=== PATIENT | female | born 1990 | race Caucasian/White ===

== ENCOUNTER 2021-05-05 08:27 | Outpatient (CLI) | payer OTHER | END 2021-05-05 08:28 | disposition home or self-care (01) | LOC: CSHLAB 08:27 | PROVIDERS: ATTEND Student in an Organized Health Care Education/Training Program | DX: U07.1 COVID-19 (principal) | CPT/HCPCS: 36415; 80053; 85027; 86780; 86850; 86900; 86901; 87340; U0002 ==

== ENCOUNTER 2021-05-06 10:01 | Inpatient (IN) | payer OTHER ==
[2021-05-05 13:44] LABS: Hemoglobin 12.9 g/dL (12.0-15.5); Mean Corpuscular HGB CONC 33.9 g/dL (32.0-36.0); Mean Corpuscular Volume 91.3 fl (81.6-98.3); Mean Platelet Volume 11.5 fl (7.4-10.4); Platelet Count 228 10x3/uL (150-450); RBC Distribution Width 12.7 % (11.5-14.5); Red Blood Cell (RBC) Count 4.16 10x6/uL (3.90-5.03); White Blood Cell (WBC) Count 7.3 10x3/uL (3.5-10.5)
[2021-05-05 14:01] LABS: ALT (SGPT) 18 U/L (8-55); AST (SGOT) 27 U/L (5-34); Albumin 3.5 g/dL (3.5-5.0); Alkaline Phosphatase 129 U/L (40-110); Anion Gap 14 mmol/L (10-20); BUN (Urea Nitrogen) 5 mg/dL (7.0-18.7); Bilirubin, Total 0.4 mg/dL (0.2-1.2); Calc. Creatinine Clearance 0 mL/min (70-130); Calcium 8.9 mg/dL (7.8-10.44); Carbon Dioxide 22 mmol/L (22-29); Chloride 105 mmol/L (98-107); Globulin 2.5 g/dL (2.4-3.5); Glucose 77 mg/dL (70-105); Potassium 4.3 mmol/L (3.5-5.1); Sodium 137 mmol/L (136-145)
[2021-05-05 14:18] LABS: Hep B Surf Ag Non-Reactive S/CO (NonReactive)
[2021-05-05 14:19] LABS: Syphilis Antibody Nonreactive (Nonreactive); Syphilis Antibody Index 0.03 S/CO (<1.00 Non-Reactive)
[2021-05-05 14:20] LABS: HBSAg Index 0.17 S/CO (0-0.99)
[2021-05-05 14:37] LABS: SARS-CoV-2 NAA Rapid Test DETECTED (NotDetected)
[2021-05-06] MEDS ORDERED: Famotidine/PF 20 mg/2ml Vial SLOW IVP PRN (10:58)
[2021-05-06] MEDS ORDERED: Bicitra 30 ML UDCUP PO PRN (10:58)
[2021-05-06] MEDS ORDERED: hydrALAZINE 20 MG/ML VIAL SLOW IVP PRN ×2 (10:58→16:41)
[2021-05-06] MEDS ORDERED: Promethazine HCl 25 MG/ML VIAL IM PRN ×3 (10:58→16:41)
[2021-05-06] MEDS ORDERED: Lactated Ringer's 1,000 ML IV SCH (10:58)
[2021-05-06] MEDS ORDERED: Ondansetron PF 4 MG/2 ML Vial IVP PRN ×3 (10:58→16:41)
[2021-05-06] MEDS ORDERED: ceFAZolin 2 GM/Dextrose 50 ML 2 GM in Premix Bag 1 BAG IVPB SCH (10:58)
[2021-05-06 11:11] VITALS: BMI 29.5
[2021-05-06] MEDS ORDERED: Phenylephrine 10 MG/ML VIAL ONE (11:31)
[2021-05-06] MEDS ORDERED: Oxytocin 10 UNITS/ML VIAL ONE (11:34)
[2021-05-06] MEDS ORDERED: Dexamethasone 4 mg/ml Vial ONE (11:34)
[2021-05-06] MEDS ORDERED: Ketorolac Tromethamine 30 MG/ML VIAL ONE (11:34)
[2021-05-06] MEDS ORDERED: Ondansetron PF 4 MG/2 ML Vial ONE (11:34)
[2021-05-06] MEDS ORDERED: Morphine PF 10 MG/10 ML VIAL ONE (11:36)
[2021-05-06] MEDS ORDERED: Fentanyl 100 MCG/2 ML VIAL ONE (11:36)
[2021-05-06] MEDS ORDERED: Naloxone HCl 0.4 mg/ml Vial IV PRN (11:43)
[2021-05-06] MEDS ORDERED: Ondansetron HCl/PF 4 MG/2 ML Vial IVP PRN (11:43)
[2021-05-06] MEDS ORDERED: Meperidine HCl/PF 25 MG/ML VIAL SLOW IVP PRN (11:43)
[2021-05-06] MEDS ORDERED: Naloxone HCl 0.4 mg/ml Vial IVP PRN ×2 (11:43)
[2021-05-06] MEDS ORDERED: Hydrocerin (Eucerin) Cream 120 gm Jar TOP PRN (11:43)
[2021-05-06] MEDS ORDERED: Promethazine HCl 25 MG SUPP PR PRN (11:43)
[2021-05-06] MEDS ORDERED: diphenhydrAMINE 50 MG/ML VIAL IVP PRN (11:43)
[2021-05-06] MEDS ORDERED: Fentanyl 100 MCG/2 ML VIAL SLOW IVP PRN (11:43)
[2021-05-06] MEDS ORDERED: Communication Order-Pharmacy FS SCH (11:45)
[2021-05-06] MEDS ORDERED: Glycopyrrolate 0.2 MG/ML 5 ML SYRINGE ONE (12:21)
[2021-05-06] MEDS ORDERED: NS w/ Oxytocin 30 units 500 ML ONE (12:50)
[2021-05-06] MEDS ORDERED: Meperidine HCl/PF 25 MG/ML VIAL ONE (14:28)
[2021-05-06] MEDS ORDERED: Lanolin Ointment 7 GM TUBE TOP PRN (16:41)
[2021-05-06] MEDS ORDERED: diphenhydrAMINE 25 MG CAP PO PRN (16:41)
[2021-05-06] MEDS ORDERED: Boostrix 0.5 ML (Tdap) VIAL IM ONE (16:41)
[2021-05-06] MEDS ORDERED: Simethicone Chewable 80 MG TAB PO PRN (16:41)
[2021-05-06] MEDS ORDERED: Bisacodyl 10 MG SUPP PR PRN (16:41)
[2021-05-06] MEDS ORDERED: Acetaminophen 325 MG TAB PO PRN (16:41)
[2021-05-06] MEDS: Ketorolac Tromethamine 30 MG/ML VIAL IVP SCH (18:26)
[2021-05-06] MEDS: Docusate 100 MG CAP PO SCH (21:00)
[2021-05-06] MEDS: Ferrous Sulfate 325 MG TAB PO SCH (21:00)
[2021-05-06] MEDS ORDERED: Zolpidem Tartrate 5 MG TAB PO PRN (23:45)
[2021-05-06] MEDS ORDERED: HYDROcodone/Acetaminophen 5/325 mg Tablet PO PRN (23:45)
[2021-05-07 05:09] LABS: Hemoglobin 11.2 g/dL (12.0-15.5); Mean Corpuscular HGB CONC 33.8 g/dL (32.0-36.0); Mean Corpuscular Hemoglobin 30.6 pg (27.0-33.0); Mean Corpuscular Volume 90.4 fl (81.6-98.3); Mean Platelet Volume 10.3 fl (7.4-10.4); Platelet Count 210 10x3/uL (150-450); RBC Distribution Width 12.4 % (11.5-14.5); Red Blood Cell (RBC) Count 3.66 10x6/uL (3.90-5.03); White Blood Cell (WBC) Count 11.4 10x3/uL (3.5-10.5)
[2021-05-07] MEDS: Ketorolac Tromethamine 30 MG/ML VIAL IVP SCH ×3 (05:30→10:01)
[2021-05-07] MEDS: Ferrous Sulfate 325 MG TAB PO SCH (08:08)
[2021-05-07] MEDS: Docusate 100 MG CAP PO SCH (08:08)
[2021-05-07] MEDS ORDERED: Prenatal Vitamin 1 TAB PO SCH (09:00)
[2021-05-07 09:56] VITALS: TEMP 98.5
[2021-05-07] MEDS: HYDROcodone/Acetaminophen 5/325 mg Tablet PO PRN ×2 (10:02→14:11)
[2021-05-07] MEDS ORDERED: Ibuprofen 800 MG TAB PO SCH (14:00)
[2021-05-07 14:26] VITALS: BP 121/56
== END 2021-05-07 17:15 | disposition home or self-care (01) | DRG 786 ==
LOC: CSHLD 10:01 → CSHANTE 16:30
PROVIDERS: ADMIT Student in an Organized Health Care Education/Training Program; ATTEND Student in an Organized Health Care Education/Training Program
PROC: 8E0ZXY6 Isolation (ICD-10-PCS; 2021-05-06)
PROC: 10D00Z1 Extraction of Products of Conception, Low, Open Approach (ICD-10-PCS; principal; 2021-05-07)
DX: O44.03 Complete placenta previa NOS or without hemorrhage, third trimester (principal); U07.1 COVID-19; E23.2 Diabetes insipidus; O98.52 Other viral diseases complicating childbirth; Z3A.37 37 weeks gestation of pregnancy; Z37.0 Single live birth; F50.9 Eating disorder, unspecified; E03.9 Hypothyroidism, unspecified; O99.284 Endocrine, nutritional and metabolic diseases complicating childbirth; O99.344 Other mental disorders complicating childbirth; Z79.890 Hormone replacement therapy; Z79.899 Other long term (current) drug therapy; O99.824 Streptococcus B carrier state complicating childbirth
CPT/HCPCS: 36415; 80053; 85027; 86780; 86850; 86900; 86901; 87340; J1100; J1885; J2175; J2274; J2370; J2405; J2590; J3010; U0002